=== PATIENT | female | born 1990 | race Caucasian/White ===

== ENCOUNTER 2017-06-12 09:58 | Emergency (ER) | payer BC ==
--- NOTE | 2017-06-12 10:43 | ER Document Report ---
ED General - General Chief Complaint: Cyst Stated Complaint: BUTTOCK PAIN Time Seen by Provider: 06/12/17 10:31 Mode of Arrival: Ambulatory Information source: Patient Notes: Patient presents emergency department with complaints of abscess to her buttocks area. She reports it started a few days ago. Increasing pain. She tried warm packs but it didn't help the area. Reports she has never had this before. Denies other symptoms such as fever vomiting diarrhea. No history of MRSA TRAVEL OUTSIDE OF THE [place] IN LAST 30 DAYS: No - HPI Onset: Yesterday Onset/Duration: Persistent Severity: Moderate Pain Level: 3 Associated symptoms: None Exacerbated by: Denies Relieved by: Denies Similar symptoms previously: No Recently seen / treated by doctor: No - Related Data Allergies/Adverse Reactions: No Known Allergies Allergy (Verified 06/12/17 09:58) Past Medical History - General Information source: Patient Last Menstrual Period: last week - Social History Smoking Status: Never Smoker Cigarette use (# per day): No Frequency of alcohol use: None Drug Abuse: None Occupation: speech therapist Lives with: Family Family History: DM - father, Malignancy - mother Patient has suicidal ideation: No Patient has homicidal ideation: No - Medical History Medical History: Negative Renal/ Medical History: Denies: Hx Peritoneal Dialysis Surgical Hx: Negative Review of Systems - Review of Systems Notes: Review HPI for review of systems., All other systems negative Physical Exam - Vital signs Vitals: Temp Pulse Resp BP Pulse Ox 97.9 F 119 H 16 137/86 H 99 06/12/17 10:04 06/12/17 10:04 06/12/17 10:04 06/12/17 10:04 06/12/17 10:04 - Notes Notes: PHYSICAL EXAMINATION: GENERAL: Well-appearing nontoxic looking HEAD: Atraumatic, normocephalic. EYES: Pupils equal round extraocular movements intact, sclera anicteric, conjunctiva are normal. ENT: nares patent, . Moist mucous membranes. NECK: Normal range of motion, supple without lymphadenopathy LUNGS: RR even/unlabored HEART: Regular rate EXTREMITIES: Normal range of motion, no pitting edema. No cyanosis. NEUROLOGICAL: Cranial nerves grossly intact. Normal sensory/motor exams. PSYCH: Normal mood, normal affect. SKIN: Warm, Dry, normal turgor, no rashes - Skin Skin Temperature: Warm Skin Moisture: Dry Skin irregularity: Abscess Location of irregularity: Other - buttock Character of irregularity: Erythematous Irregularity with: Swelling, Tenderness. negative: Warmth Course - Re-evaluation Re-evalutation: 06/12/17 Obtained a large amount of discharge, patient instructed on Bactrim. Signs and symptoms of allergic reaction. Patient was also instructed to return to the emergency department if abscess becomes larger. She verbalized understanding tall instructions. - Vital Signs Vital signs: Temp Pulse Resp BP Pulse Ox 98.7 F 110 H 18 117/71 98 06/12/17 12:01 06/12/17 12:01 06/12/17 12:01 06/12/17 12:01 06/12/17 12:01 Procedures - Incision and Drainage Right Buttock Time completed: 11:22 Type: Simple Anesthetic type: 1% Lidocaine mL's of anesthetic: 2 Blade size: 11 I&D procedure: Shurclens applied Incision Method: Incision made by scalpel Amount/type of drainage: LARGE AMOUNT OF FOUL SMELLING CREAMY BLOODY DISCHARGE OBTAINED Notes: 06/12/17 11:23 Area probed and irrigated well with normal saline. PT tolerated procedure well Adult Front & Back picture: 1 - ~ 3 cm oval, mostly to right side of buttocks in gluteal fold, tenderness/ swelling/ flunctuant Discharge - Discharge Clinical Impression: Abscess Condition: Stable Instructions: Abscess ([facility]), Family Physicians / Practices, Oral Narcotic Medication (OM), Post Incision and Drainage, Trimethoprim-Sulfa ([facility]) Additional Instructions: *You have been treated for an abscess with incision and drainage *Take medication as prescribed *Monitor the site for signs of increasing infection such as increasing pain, redness, swelling, warmth *Wash the site twice daily as discussed *Follow up with a primary care provider within 3 days *Return to ED for signs of increasing infection, worsening condition, changes, needs Monitor your blood pressure. Your blood pressure was elevated today. This may be because you were anxious, in pain or because you need medication. It is important to follow up with your primary care provider for full evaluation. Prescriptions: Hydrocodone/Acetaminophen [[place] 5-325 Tablet] 1 each PO QID #15 tablet Sulfamethoxazole/Trimethoprim [Bactrim Ds Tablet] 1 each PO BID #20 tablet Forms: Elevated Blood Pressure, Return to Work
[2017-06-12 12:02] VITALS: BP 117/71
== END 2017-06-12 12:01 | disposition home or self-care (01) ==
LOC: ER 09:58
PROC: 0H98XZZ Drainage of Buttock Skin, External Approach (ICD-10-PCS; principal; 2017-06-12)
DX: L02.31 Cutaneous abscess of buttock (principal)
CPT/HCPCS: 87070; 87075; 87077; 87205; 99283